=== PATIENT | female | born 1980 | race Hispanic/Latino ===

== ENCOUNTER 2021-11-12 04:52 | Inpatient (IN) | payer MEDICAID ==
[2021-11-10 09:46] LABS: Hematocrit 31.9 % (30.3-42.9); Hemoglobin 10.9 gm/dl (10.1-14.3); Mean Corpuscular HGB Conc 34 % (30-34); Mean Corpuscular Volume 89 fl (79-97); Platelet Count 293 K/mm3 (140-440); Red Blood Count 3.58 M/mm3 (3.65-5.03); Red Cell Distribution Width 15.4 % (13.2-15.2)
[2021-11-12] MEDS ORDERED: WITCH HAZEL/ GLYCERIN PAD TP PRN ×2 (06:26→12:47)
[2021-11-12] MEDS ORDERED: NALOXONE 0.4 MG/1 ML INJ IV PRN ×3 (06:26→12:47)
[2021-11-12] MEDS ORDERED: LANOLIN/ZINC/DIMETHICONE (LANSINOH) 7 GM TP PRN ×2 (06:26→12:47)
[2021-11-12] MEDS ORDERED: LACTATED RINGERS 1,000 ML IV SCH (06:30)
--- NOTE | 2021-11-12 06:57 | History and Physical Report ---
History of Present Illness Date of examination: 11/12/21 Date of admission: 11/12/21 04:52 Chief complaint: I'm here for my History of present illness: Pt is a 41 year old white female who presents for elective repeat at 38.3 weeks secondary to AMA and LGA weighing at greater than 90%. Pt was advised to be delivered between 38 and 39 weeks by [facility]. Pt started care in the early second trimester and has had an uncomplicated course. All labs are normal. She is GBS negative Past History Past Medical History: no pertinent history Past Surgical History: section Social history: - Obstetrical History Expected Date of Delivery: 11/24/21 Actual Gestation: 38 Week(s) 2 Day(s) : 3 Number of Living Children: 2 Medications and Allergies Allergies Allergy/AdvReac Type Severity Reaction Status Date / Time No Known Allergies Allergy Verified 11/08/21 16:04 Home Medications Medication Instructions Recorded Confirmed Last Taken Type Pnv No.133/Ferrous Fum/Folic [Gs 1 each PO DAILY 11/08/21 11/08/21 Unknown Hi story Vitamins Tablet] Active Meds: Active Medications Citric Acid/Sodium Citrate (Bicitra Oral Liqd 30ml) 30 ml PO ONCE ONE Stop: 11/12/21 07:27 Famotidine (Famotidine 20 Mg/2 Ml Inj) 20 mg IV ONCE ONE Stop: 11/12/21 07:27 Lactated Ringer's (Lactated Ringers) 1,000 mls @ 2,250 mls/hr IV PREOP BRUCE Stop: 11/13/21 06:57 Oxytocin/Sodium Chloride (Pitocin/Ns 30 Unit/500ml) 30 units in 500 mls @ 0 mls/hr IV TITR BRUCE; Protocol Stop: 11/12/21 23:59 Oxytocin/Sodium Chloride (Pitocin/Ns 30 Unit/500ml) 30 units in 500 mls @ 40 mls/hr IV TITR BRUCE; Protocol Cefazolin Sodium (Ancef/Sterile Water 2 Gm/20 Ml) 2 gm in 20 mls @ 80 mls/hr IV PREOP NR; Protocol Stop: 11/12/21 23:45 Metoclopramide HCl (Metoclopramide 10 Mg/2 Ml Inj) 10 mg IV ONCE ONE Stop: 11/12/21 07:27 Multi-Ingredient Ointment (Lanolin/Zinc/Dimethicone (Lansinoh) 7 Gm) 1 applic T P PRN PRN PRN Reason: dryness/cracking Naloxone HCl (Naloxone 0.4 Mg/1 Ml Inj) 0.1 mg IV Q2MIN PRN PRN Reason: Res Rate </= 8 or 02 SAT < 92% Sodium Chloride (Sodium Chloride 0.9% 10 Ml Flush Syringe) 10 ml IV PRN NR Stop: 11/13/21 06:59 Witch Chantal/Glycerin (Witch Chantal/ Glycerin Pad) 1 each TP PRN PRN PRN Reason: Hemorrhoids/cleansing/soothing Review of Systems All systems: negative Genitourinary: deferred - Vital Signs Vital signs: Vital Signs Temp Pulse Resp BP Pulse Ox 97.5 F L 101 H 16 121/71 98 11/10/21 09:20 11/10/21 09:20 11/10/21 09:20 11/10/21 09:20 11/10/21 09:20 Temp Pulse Resp BP Pulse Ox 98 F 91 H 16 119/69 96 11/12/21 05:39 11/12/21 06:50 11/12/21 05:39 11/12/21 05:39 11/12/21 06:50 - Physical Exam Breasts: Cardiovascular: Regular rate, Normal S1, Normal S2 Lungs: Positive: Clear to auscultation, Normal air movement Abdomen: Positive: normal appearance, soft, normal bowel sounds. Negative: distention, tenderness Genitourinary (Female): Positive: normal external genitalia, normal perenium Vulva: both: normal Vagina: Positive: normal moisture. Negative: discharge Cervix: Negative: lesion, discharge Uterus: Positive: normal size, normal contour Adnexa: both: normal Anus/Rectum: Positive: normal perianal skin, heme negative. Negative: rectal mass, hemorrhoids Extremities: Deep Tendon Reflex Grade: Normal +2 - Obstetrical FHR: auscultation normal Cervical Dilatation: 0 Cervical Effacement Percentage: 50 station: -2 Uterine Contraction Intensity: Moderate Results Result Diagrams: 11/12/21 06:30 All other labs normal. Assessment and Plan IUP at 38.2 weeks here for repeat with tubal ligation. Admit to L&D. Proceed with scheduled surgery.
[2021-11-12] MEDS ORDERED: ceFAZolin/Water 2 GM/20 ML 2 GM/20 ML SYRINGE IV NR (07:00)
[2021-11-12] MEDS ORDERED: OXYTOCIN DRIP 30 UNITS/500 ML BAG IV SCH ×3 (07:00→12:47)
[2021-11-12 07:02] LABS: Basophils % (Auto) 0.3 % (0.0-1.8); Eosinophils # (Auto) 0.1 K/mm3 (0.0-0.4); Eosinophils % (Auto) 1.3 % (0.0-4.3); Hematocrit 33.7 % (30.3-42.9); Hemoglobin 11.2 gm/dl (10.1-14.3); Lymphocytes # (Auto) 2.1 K/mm3 (1.2-5.4); Lymphocytes % (Auto) 18.4 % (13.4-35.0); Mean Corpuscular HGB Conc 33 % (30-34); Mean Corpuscular Volume 91 fl (79-97); Monocytes # (Auto) 0.7 K/mm3 (0.0-0.8); Platelet Count 221 K/mm3 (140-440); Red Blood Count 3.71 M/mm3 (3.65-5.03); Red Cell Distribution Width 15.7 % (13.2-15.2)
[2021-11-12] MEDS ORDERED: BICITRA ORAL LIQD 30ML PO ONE (07:26)
[2021-11-12] MEDS ORDERED: FAMOTIDINE 20 MG/2 ML INJ IV ONE (07:26)
[2021-11-12] MEDS ORDERED: METOCLOPRAMIDE 10 MG/2 ML INJ IV ONE (07:26)
[2021-11-12] MEDS ORDERED: WATER FOR IRRIG STERILE 1,500 ML BOTTLE IR ONE (08:58)
[2021-11-12] MEDS ORDERED: SODIUM CHLORIDE 0.9% IRR 1,500 ML BOTTLE IR ONE (08:58)
--- NOTE | 2021-11-12 09:03 | Anesthesia Consultation ---
Anesthesia Consult and Med Hx Date of service: 11/12/21 - Airway Anesthetic Teeth Evaluation: Good ROM Head & Neck: Adequate Mental/Hyoid Distance: Adequate Mallampati Class: Class II Intubation Access Assessment: Probably Good - Pulmonary Exam CTA: Yes - Cardiac Exam Cardiac Exam: RRR - Pre-Operative Health Status ASA Pre-Surgery Classification: ASA2 Proposed Anesthetic Plan: Spinal Nerve Block: Les Tap - Pulmonary Hx Smoking: Yes (STOPPED X 1 YR) Hx Asthma: No Hx Respiratory Symptoms: No SOB: No COPD: No Home Oxygen Therapy: No Hx Pneumonia: No Hx Sleep Apnea: No (CHAU PRE SCREEN LOW RISK) - Cardiovascular System Hx Hypertension: No Hx Coronary Artery Disease: No Hx Heart Attack/AMI: No Hx Angina: No Hx Percutaneous Transluminal Coronary Angioplasty (PTCA): No Hx Cardia Arrhythmia: No Hx Pacemaker: No Hx Internal Defibrillator: No Hx Valvular Heart Disease: No Hx Heart Murmur: No Hx Peripheral Vascular Disease: No - Central Nervous System Hx Neuromuscular Disorder: No Hx Seizures: No CVA: No Hx Back Pain: No Hx Psychiatric Problems: No - Gastrointestinal Hx Ulcer: No Hx Gastroesophageal Reflux Disease: No - Endocrine Hx Renal Disease: No Hx End Stage Renal Disease: No Hx Cirrhosis: No Hx Liver Disease: No Hx Insulin Dependent Diabetes: No Hx Non-Insulin Dependent Diabetes: No Hx Thyroid Disease: No Hx Hypothyroidism: No Hx Hyperthyroidism: No - Hematic Hx Anemia: No Hx Sickle Cell Disease: No - Other Systems Hx Alcohol Use: Yes (Social) Hx Substance Use: Yes (MARIJUANA & METH ABUSE-NONE X 2.5 YRS) Hx Cancer: No Hx Obesity: Yes
--- NOTE | 2021-11-12 09:04 | Anesthesia Day of Surgery ---
Anesthesia Day of Surgery - Day of Surgery Patient Examined: Yes Patient H&P Reviewed: Yes Patient is NPO: Yes Beta Blockers: No Cardiac Clearance: No Pulmonary Clearance: No Andrew's Test: N/A
[2021-11-12] MEDS ORDERED: LACTATED RINGERS 1,000 ML ONE (09:46)
[2021-11-12] MEDS ORDERED: ONDANSETRON 4 MG/2 ML INJ ONE (09:46)
[2021-11-12] MEDS ORDERED: BUPIVACAINE/PF (0.5%) 5 MG/1 ML 30 ML VIAL INFILTRATI ONE (09:46)
[2021-11-12] MEDS ORDERED: ePHEDrine SULFATE 50 MG/1 ML INJ ONE (09:46)
[2021-11-12] MEDS ORDERED: PHENYLEPHRINE/NS 1,000 MCG/10 ML SYRINGE (OR USE) IV ONE (09:46)
[2021-11-12] MEDS ORDERED: MORPHINE 4 MG/1 ML INJ IV PRN (10:00)
[2021-11-12] MEDS ORDERED: ONDANSETRON 4 MG/2 ML INJ IV PRN (10:00)
[2021-11-12] MEDS ORDERED: PROMETHAZINE 25 MG RECT SUPP PR PRN (10:00)
[2021-11-12] MEDS ORDERED: diphenhydrAMINE 50 MG/ML VIAL IV PRN (10:00)
[2021-11-12] MEDS ORDERED: PROMETHAZINE 25 MG TAB PO PRN (10:00)
[2021-11-12] MEDS ORDERED: HYDROmorphone 1 MG/1 ML INJ IV PRN ×2 (10:00)
--- NOTE | 2021-11-12 10:36 | Progress Note ---
Regional Anesthesia Block - Regional Anesthesia Block Start Time: :18 Stop Time: : Performed By:: ЕЛЕНА ROJAS Procedure: During the pre-op interview the patient agreed to and signed a consent for a TAP block for post surgical pain management. After her C/S was completed a time out was performed prior to the start of the procedure. The Trans Abdominal Plane was identified bilaterally via ultrasound. The skin was prepped bilaterally with chlorhexidine and a 22g stimuplex needle was advanced to the area between the internal oblique muscle and the trans abdominal plane. Marcaine 0.25% 30mlwas injected under ultrasound guidance on the left and right side. Negative aspiration every 5mL, There was no change in the patients heart rate or rhythm and the patient tolerated the procedure well. No apparent complications were observed.
--- NOTE | 2021-11-12 10:36 | Progress Note ---
Spinal Anesthesia Block - Spinal Anesthesia Block Start Time: 08:29 Stop Time: 08:42 Performed by:: ЕЛЕНА ROJAS Procedure: The patient was placed in a sitting position on the OR table and monitors applied. A timeout was performed immediately prior to the start of the procedure. The patient was Prepped and draped in a sterile fashion and the skin was localized with 3 mL 1% lidocaine at L[4]-L[5] interspace. An introducer was placed into the back between L4-L5 and a 25g spinal needle was advanced into the intrathecal space until clear, free flowing CSF was observed. 1.8cc of 0.75% hyperbaric bupivacaine + 5mcg Precedex was injected into the intrathecal space and the spinal needle was removed. The patient tolerated the procedure well and there were no immediate complications noted.
[2021-11-12] MEDS ORDERED: oxyCODONE /ACETAMINOPHEN 5-325MG TAB PO PRN (12:47)
[2021-11-12] MEDS ORDERED: D5W/LACTATED RINGERS 1,000 ML IV SCH (12:47)
--- NOTE | 2021-11-12 13:55 | Procedure Note ---
OB Delivery Note - Delivery Date of Delivery: 11/12/21 Surgeon: JIM HERNANDEZ Estimated blood loss: 1000cc - Section Preop diagnosis: repeat , desires sterilization Postop diagnosis: same section procedure: repeat low transverse, bilateral tubal ligation Disposition: PACU Complications: none Narrative: See op report - A at 1 minute: 8 at 5 minutes: 9 Gender: Male (8 pounds 2 ounces, 3680 g)
--- NOTE | 2021-11-12 13:59 | Operative Report ---
Operative Report Operative Report: Preoperative diagnosis: Intrauterine at 38 and 2 7 weeks 2. Previous 3. Large for gestational age infant 4. Undesired fertility Postoperative diagnosis: Same Procedure: Repeat low transverse section, Bilateral tubal ligation Surgeon: Dr. Adina Roman EBL: 1000 Urine output: 200 mL IV fluids: 1000 mL Findings: Viable male in the vertex presentation. Weight 8 lbs. 2 oz. 3880 g Apgars 8 and 9. Otherwise normal pelvic anatomy Specimens: Portion of right and left fallopian tube Complications: None Procedure: The patient was admitted to the OR with IV running and in place. She was properly identified as herself. She was given spinal anesthesia in the OR without difficulty. She was placed in the dorsal supine position with a leftward tilt. A Mukherjee catheter was inserted. She was then prepped and draped in the normal sterile fashion. An Allis test was used to confirm adequate anesthesia. Once confirmed, the incision was made with the scalpel and carried to the underlying fascia using the scalpel and the Bovie. The fascia was incised in the midline and incision was extended bilaterally using the curved Mirza scissors. The fascia was then dissected from the underlying rectus muscles in a series of sharp and blunt dissection using the Mirza scissors. Muscles were in the in the midline sharply using Metzenbaum scissors and the peritoneum was entered into bluntly using the surgeon's fingers. A bladder blade was then placed into the incision to protect the bladder. Following this the bladder flap was created. Hysterotomy incision was then made in the scalpel. Upon uterine entry, the amniotic sac was ruptured for clear fluid. The was then delivered without difficulty. His mouth and nose were suctioned on the field. The cord was clamped and cut and he was handed to the waiting NICU personnel. The uterus was then exteriorized and cleared of all clots and debris. The hysterotomy incision was then closed in a running locked fashion using 0 Vicryl. The abdomen was then copiously irrigated with warm normal saline. Attention was turned the the fallopian tubes. Each tube was identified and followed out the the fimbriated end. The right tube was densely adherent to the ovary. It was released using sharp dissection with the Metzenbaum scissors. The broad ligament was ultimately traversed clamped and cut and the remaining tube was tied off. The left tube was grasped in the midportion and ligated in the [place] style Tubal ligation. Following this the uterus was replaced into the abdominal cavity. At this point the muscles were reapproximated in the midline using individual sutures of 0 Vicryl. Following this the fascia was closed in a running fashion using 0 Vicryl. Tissue was then copiously irrigated. Retention sutures were placed in the subcutaneous fat tissue Skin was closed in a running fashion using 3-0 Monocryl. The sponge lap needle and instrument counts were correct 2. The patient tolerated the procedure well. She was taken to recovery in stable condition.
[2021-11-12] MEDS: MORPHINE 4 MG/1 ML INJ IV PRN ×2 (14:36→20:59)
[2021-11-12] MEDS: KETOROLAC 30 MG/1 ML INJ IV PRN (16:13)
--- NOTE | 2021-11-12 17:47 | Post Anesthesia Evaluation ---
- Post Anesthesia Evaluation Patient Participated: Yes Airway Patent: Yes Stable Respiratory Function: Yes Nausea/Vomiting: No Temp > 96.8F: Yes Pain Manageable: Yes Adequeate Hydration: Yes Anesthesia Complications: No Block Receding Appropriately: Yes Patient on Ventilator: No
[2021-11-12 19:30] LABS: Hematocrit 30.5 % (30.3-42.9)
[2021-11-12 23:41] LABS: Hematocrit 29.2 % (30.3-42.9); Hemoglobin 9.8 gm/dl (10.1-14.3)
[2021-11-13] MEDS: MAGNESIUM HYDROXIDE (MOM) ORAL LIQD UDC PO PRN ×3 (03:01→23:43)
[2021-11-13] MEDS: SIMETHICONE 80 MG CHEW TAB PO PRN ×4 (03:01→23:43)
[2021-11-13] MEDS: IBUPROFEN 800 MG TAB PO PRN (08:31)
[2021-11-13] MEDS: FERROUS SULFATE 325 MG TAB PO SCH (10:16)
[2021-11-13] MEDS: MORPHINE 4 MG/1 ML INJ IV PRN (18:10)
--- NOTE | 2021-11-13 20:15 | Progress Note ---
Assessment and Plan pod 1 s/p LTCS with tubal ligation. Patient was doing well until she had an episode of vomiting. She had passed flatus but has not had a bowel movement yet. We will put patient back on clear liquids for tomorrow morning and then advance diet slowly. Continue routine care. Subjective - Subjective Date of service: 11/13/21 Interval history: Pt is a 41 year old white female who presents for elective repeat at 38.3 weeks secondary to AMA and LGA infant weighing at greater than 90%. Pt was advised to be delivered between 38 and 39 weeks by [facility]. Pt started care in the early second trimester and has had an uncomplicated course. All labs are normal. She is GBS negative Patient reports: appetite normal, voiding normally, pain well controlled, flatus, ambulating normally, nauseated (Patient had an episode of vomiting earlier this evening) Harris: doing well Objective - Vital Signs Latest vital signs: Vital Signs Temp Pulse Resp BP BP Pulse Ox Pulse Ox 11/13/21 15:16 98.2 F 78 20 135/75 98 11/13/21 08:02 98.0 F 76 16 126/77 95 11/13/21 07:30 98 11/13/21 05:54 98 11/13/21 05:15 98.5 F 80 20 127/70 96 11/13/21 03:55 98 11/13/21 02:20 98 11/13/21 01:20 98.8 F 77 20 128/78 97 11/13/21 00:10 98 11/12/21 21:55 98 11/12/21 21:00 98.7 F 72 20 147/80 97 Intake and Output 11/13/21 11/13/21 11/13/21 06:59 14:59 22:59 Intake Total 480 720 120 Output Total 800 Balance -320 720 120 Intake: Oral 480 720 120 Output: Urine 800 Indwelling Catheter 500 Void 300 Other: Total, Intake Amount 240 240 120 Total, Output Amount 300 # Voids Void 3 1 - Exam Breasts: Present: deferred Cardiovascular: Present: Regular rate, Normal S1, Normal S2 Lungs: Present: Clear to auscultation, Normal air movement Abdomen: Present: normal appearance, soft, normal bowel sounds Uterus: Present: normal, firm Extremities: Present: normal Deep Tendon Reflex Grade: Normal +2 Incision: Present: normal - Labs Labs: Abnormal lab results 11/12/21 Range/Units 22:33 Hgb 9.8 L (10.1-14.3) gm/dl Hct 29.2 L (30.3-42.9) %
[2021-11-13] MEDS ORDERED: ONDANSETRON 4 MG/2 ML INJ IV PRN (22:06)
[2021-11-13] MEDS: KETOROLAC 30 MG/1 ML INJ IV PRN (22:27)
[2021-11-14] MEDS: ACETAMINOPHEN 325 MG TAB PO PRN ×2 (06:00→09:34)
--- NOTE | 2021-11-14 17:51 | Discharge Summary ---
Providers - Providers Date of Admission: 11/12/21 04:52 Date of discharge: 11/15/21 Attending physician: JIM HERNANDEZ Primary care physician: JIM HERNANDEZ Hospitalization Reason for admission: section Delivery: Procedure: bilateral tubal ligation, repeat low transverse Procedure details: See op report Episiotomy: none Incision: normal, dry, intact Other procedures: tubal ligation complications: none, other (Nausea and vomiting) Discharge diagnosis: IUP at term delivered [place] baby: male Hospital course: Stable Condition at discharge: Good Disposition: 01 HOME / SELF CARE / HOMELESS Plan - Discharge Medications Prescriptions: Docusate Sodium [Colace] 100 mg PO BID #60 capsule Ferrous Sulfate [Feosol 325 MG tab] 325 mg PO BID #60 tablet Ibuprofen [Motrin] 800 mg PO Q8HR PRN #40 tablet PRN Reason: Pain, Moderate (4-6) HYDROcodone/APAP 5-325 [[place] 5/325] 1 each PO Q6HR PRN #15 tablet PRN Reason: Pain oxyCODONE /ACETAMINOPHEN [Percocet 5/325] 2 tab PO Q6HR PRN #40 tablet PRN Reason: Pain - Provider Discharge Summary Activity: routine, no sex for 6 weeks, no heavy lifting 4 weeks, no strenuous exercise Diet: routine Instructions: routine Additional instructions: [] Smoking cessation referral if applicable(refer to patient education folder for contact #) [] Refer to [facility] Booklet Call your doctor immediately for: * Fever > 100.5 * Heavy vaginal bleeding ( >1 pad per hour) * Severe persistent headache * Shortness of breath * Reddened, hot, painful area to leg or breast * Drainage or odor from incision. * Keep incision clean and dry at all times and follow doctor's instructions regarding bathing/showering - Follow up plan Follow up: JIM HERNANDEZ MD [Primary Care Provider] - 14 Days
[2021-11-14] MEDS: FERROUS SULFATE 325 MG TAB PO SCH (17:59)
[2021-11-14] MEDS: IBUPROFEN 800 MG TAB PO PRN (23:40)
[2021-11-15] MEDS: IBUPROFEN 800 MG TAB PO PRN (11:07)
[2021-11-15] MEDS: FERROUS SULFATE 325 MG TAB PO SCH (11:07)
[2021-11-15 16:11] VITALS: BP 140/70
== END 2021-11-15 18:38 | disposition home or self-care (01) | DRG 766 ==
LOC: APU 04:52 → OB 12:29
PROVIDERS: ADMIT Obstetrics & Gynecology; ATTEND Obstetrics & Gynecology
PROC: 10D00Z1 Extraction of Products of Conception, Low, Open Approach (ICD-10-PCS; principal; 2021-11-12)
PROC: 0UB70ZZ Excision of Bilateral Fallopian Tubes, Open Approach (ICD-10-PCS; 2021-11-12)
PROC: 3E0T3BZ Introduction of Anesthetic Agent into Peripheral Nerves and Plexi, Percutaneous Approach (ICD-10-PCS; 2021-11-12)
DX: O34.211 Maternal care for low transverse scar from previous cesarean delivery (principal); O36.63X0 Maternal care for excessive fetal growth, third trimester, not applicable or unspecified; Z3A.38 38 weeks gestation of pregnancy; Z37.0 Single live birth; Z20.822 Contact with and (suspected) exposure to COVID-19; O99.214 Obesity complicating childbirth
CPT/HCPCS: 36415; 85014; 85018; 85025; 85027; 86592; 86850; 86900; 86901; 88302; G0378; J3490; J7060; J1885; J2270; J2370; J2405; J2765; J7120; J7121; U0003